=== PATIENT | female | born 1970 | race Caucasian/White ===

== ENCOUNTER 2021-02-17 16:00 | Emergency (ER) | payer OTHER ==
[~2021-02-17] VITALS: Ht 170.2 cm; Wt 125.6 kg
[~2021-02-17 16:00] MED LIST: CELEXA40 MG PO; CITALOPRAM HBR20 MG PO; CYCLOBENZAPRINE10 MG PO; DESIPRAMINE HCL25 MG PO; LISINOPRIL10 MG PO; LORTAB 10 MG-3473 ML PO; NARATRIPTAN HC2.5 MG PO; ONDANSETRON HCL4 MG PO; PROAIR HFA8.5 GM INH; TOPIRAMATE50 MG PO; VALIUM5 MG PO; ZITHROMAX250 MG PO; ZOLPIDEM TARTRA10 MG PO
== END 2021-02-17 19:35 | disposition home or self-care (01) ==
LOC: ED 16:00
DX: G43.909 Migraine, unspecified, not intractable, without status migrainosus (principal); F17.200 Nicotine dependence, unspecified, uncomplicated; Z88.8 Allergy status to other drugs, medicaments and biological substances; Z88.1 Allergy status to other antibiotic agents; Z79.899 Other long term (current) drug therapy
CPT/HCPCS: 96372; 99283; J1100; J1885

== ENCOUNTER 2021-02-23 07:10 | Day surgery (SDC) | payer OTHER ==
[~2021-02-23] VITALS: Ht 170.2 cm; Wt 125.9 kg
[~2021-02-23 07:10] MED LIST changes: +ACETAMINOPHEN325 M1 PO; +IBUPROFEN200 M1 PO; +KETOROLAC TROME10 MG PO
--- NOTE | 2021-02-23 08:48 | NUR ---
PT ALERT, ORIENTED AND ENJOYING A BOOK SHE BROUGHT ALONG. PT HERE FOR HER FIRST SCOPE. TOLERATED PREP, GAVE BLESSING. WILL FOLLOW NEEDED
--- NOTE | 2021-02-23 09:10 | NUR ---
02/23/21 0910 Kimberlyn,Miguelina 0900 PT ARRIVED TO PACU ON 4L VIA NC, VSS. PT NONAROUSABLE. RESP EVEN AND UNLABORED.
--- NOTE | 2021-02-24 06:13 | OR ---
[facility] [address] [place], [place] [address] Signed DATE OF OPERATION: 02/23/2021 SURGEON: Joanie Dasilva MD PREOPERATIVE DIAGNOSIS: Screening. POSTOPERATIVE DIAGNOSES: 1. 4 mm polyp at 7 cm. 2. 4 mm polyp at 12 cm. 3. Minimal internal hemorrhoids. PROCEDURE: Colonoscopy with hot biopsy. ESTIMATED BLOOD LOSS: None. INDICATIONS: Anitha is a 50-year-old female with a body mass index of 45. She was asked to see me for her initial screening colonoscopy. There are no lower GI complaints. There is no family history of colon cancer or polyps. In the office, I gave her a pamphlet on colonoscopy. She understands the nature of that test. There is risk including, but not limited to gas bloating, crampy abdominal pain, bleeding, perforation requiring surgery, and missed diagnosis. Also because of her very large face, heavy neck, and abdomen along with her multiple medical issues including a previous alcohol dependence, we asked that she have an anesthesia provider for increased monitoring sedation with propofol. She had expressed understanding and wished to proceed. PROCEDURE NOTE: Anitha was taken into our endoscopy suite and placed in the left lateral decubitus position. She was given IV sedation per our nurse fit model. A digital rectal exam was performed and this was unremarkable. The adult colonoscope was introduced and advanced all around into the cecum under direct visualization of the camera. She still had some areas of soft stool matter. I think in the future she would be much better served with a double bowel prep. The cecum itself was covered in thick pasty semi-liquid stool that we could not suction through the scope. However, we could see the ileocecal valve quite well. The scope was then slowly withdrawn. I would say well over 90% of the mucosa was visualized. We found no diverticuli. We found 2 small polyps in the rectum, easily removed with hot biopsy forceps. Upon retroflexion of Electronically Signed By: JOANIE DASILVA MD 02/24/21 0613 PATIENT NAME: ANITHA SALDANA OPERATIVE REPORT DATE OF : 70 REPORT #: [id number] PHYSICIAN: JOANIE DASILVA MD PCP: MAURICE RODRIGUEZ REPORT IS CONFIDENTIAL AND NOT TO BE RELEASED WITHOUT AUTHORIZATION [facility] [address] [place], [place] [address] Signed scope, she does have just small internal hemorrhoid columns. After this, the gas was suctioned out. The colonoscope removed. Anitha tolerated the procedure quite well. RECOMMENDATIONS: Anitha can return in the office in 7 to 14 days to review her results. She should consider double bowel prep in the future. She might consider a shorter interval for her followup endoscopy based on the bowel prep today. Joanie Dasilva MD ALB/MODL /[id number] cc: Chart Filed Incomplete Maurice Dasilva MD Copies: CHART FILED INCOMPLETE JOANIE DASILVA MD ~ Electronically Signed By: JOANIE DASILVA MD 02/24/21 0613 PATIENT NAME: ANITHA SALDANA OPERATIVE REPORT DATE OF : 70 REPORT #: [id number] PHYSICIAN: JOANIE DASILVA MD PCP: MAURICE RODRIGUEZ REPORT IS CONFIDENTIAL AND NOT TO BE RELEASED WITHOUT AUTHORIZATION
--- NOTE | 2021-02-24 16:57 | PATH ---
[facility] [address] [place], [place] [address] Signed SPECIMEN(S): A COLON POLYP AT 7 CM SPECIMEN(S): B COLON POLYP AT 12 CM SPECIMEN SOURCE: A. COLON POLYP AT 7 CM B. COLON POLYP AT 12 CM CLINICAL HISTORY: Screening colonoscopy. Postop: Internal hemorrhoids, rectal polyps. MICROSCOPIC DESCRIPTION: Histologic sections of all submitted blocks are examined by light microscopy. These findings, together with the gross examination, support the pathologic diagnosis. FINAL PATHOLOGIC DIAGNOSIS: A. Colon polyp at 7 cm: - Hyperplastic polyp (one fragment). B. Colon polyp at 12 cm: - Hyperplastic polyp with focal epithelial erosion and mild chronic inflammation (two fragments). JVR:smh:C2NR GROSS DESCRIPTION: Two specimens are received in two containers, labeled "MC." A. The specimen, labeled "MC, colon polyp at 7 cm," is received in formalin and consists of one maloney soft tissue fragment that measures 0.2 cm in greatest dimension. The specimen is entirely submitted in cassette (A1). B. The specimen, labeled "MC, colon polyp at 12 cm," is received in formalin and consists of two maloney soft tissue fragments that measure 0.2 cm in greatest dimension. The specimen is entirely submitted in cassette (B1). JS (under the direct supervision of a pathologist) The Gross Description was prepared using a voice recognition system. The report was reviewed for accuracy; however, sound-alike word errors, addition and/or deletions may occur. If there is any question about this report, please contact Client Services. PERFORMING LABORATORY: The technical component was performed by [facility], [address] [place] [id number] (Precast Worker: Ying Mota MD; CLIA# [id number]). PATIENT NAME: KURT SALDANA PATHOLOGY DATE OF : 70 REPORT #: [id number] PHYSICIAN: DIANA PATHOLOGY PCP: MAURICE RODRIGUEZ REPORT IS CONFIDENTIAL AND NOT TO BE RELEASED WITHOUT AUTHORIZATION [facility] [address] [place], [place] [address] Signed Professional interpretation was performed by [facility], [address] [address]. Diagnostician: Blair Trejo MD Pathologist Electronically Signed 02/24/2021 Copies: ~ PATIENT NAME: KURT SALDANA PATHOLOGY DATE OF : 70 REPORT #: [id number] PHYSICIAN: DIANA PATHOLOGY PCP: MAURICE RODRIGUEZ REPORT IS CONFIDENTIAL AND NOT TO BE RELEASED WITHOUT AUTHORIZATION
== END 2021-02-23 09:50 | disposition home or self-care (01) ==
LOC: OPS 07:10 → DS 07:10 → OPS 08:00 → DS 08:00 → OPS 09:50
PROVIDERS: ATTEND Colon & Rectal Surgery
PROC: 0DBP8ZX Excision of Rectum, Via Natural or Artificial Opening Endoscopic, Diagnostic (ICD-10-PCS; principal; 2021-02-23 08:00)
DX: Z12.11 Encounter for screening for malignant neoplasm of colon (principal); K63.5 Polyp of colon; F17.210 Nicotine dependence, cigarettes, uncomplicated; F32.9 Major depressive disorder, single episode, unspecified; E03.9 Hypothyroidism, unspecified
CPT/HCPCS: 84703; 88305; J2001; J2704

== ENCOUNTER 2021-05-29 20:37 | Emergency (ER) | payer OTHER ==
[~2021-05-29] VITALS: Ht 170.2 cm; Wt 125.6 kg
--- OUTSIDE RECORDS SUMMARY | 2021-05-29 20:40 | XMS ---
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 There are no care providers on record at this time. Iram has no Care Guidelines for this patient. Vinod VISIT COUNT (12 MO.) 2 JONATHON La TOTAL 2 NOTE: Visits indicate total known visits. ED/C VISIT TRACKING (12 MO.) 05/29/2021 20:38 [facility] TYPE: Emergency COMPLAINT: - HEADACHE 02/17/2021 16:01 [facility] TYPE: Emergency COMPLAINT: - HEADACHE DIAGNOSES: - Other half-way (current) drug therapy - Migraine, unspecified, not intractable, without status migrainosus - Allergy status to other drugs, medicaments and biological substances - Headache, unspecified - Allergy status to other antibiotic agents - Nicotine dependence, unspecified, uncomplicated INPATIENT VISIT TRACKING (12 MO.) No inpatient visits to display in this time frame [id number]
== END 2021-05-29 22:17 | disposition home or self-care (01) ==
LOC: ED 20:37
DX: R51.9 Headache, unspecified (principal); F17.200 Nicotine dependence, unspecified, uncomplicated; Z88.8 Allergy status to other drugs, medicaments and biological substances; Z79.899 Other long term (current) drug therapy; G43.909 Migraine, unspecified, not intractable, without status migrainosus
CPT/HCPCS: 70450; 96374; 96375; 99284-25; J1200; J1885; J2765; J7030

== ENCOUNTER 2021-07-10 17:09 | Emergency (ER) | payer OTHER ==
[~2021-07-10] VITALS: Ht 170.2 cm; Wt 127.0 kg
--- OUTSIDE RECORDS SUMMARY | 2021-07-10 17:12 | XMS ---
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 Vinod VISIT COUNT (12 MO.) 3 JONATHON La TOTAL 3 NOTE: Visits indicate total known visits. 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
== END 2021-07-10 20:10 | disposition home or self-care (01) ==
LOC: ED 17:09
DX: G43.909 Migraine, unspecified, not intractable, without status migrainosus (principal); F17.200 Nicotine dependence, unspecified, uncomplicated; Z88.1 Allergy status to other antibiotic agents; Z88.8 Allergy status to other drugs, medicaments and biological substances
CPT/HCPCS: 96374; 96375; 99283-25; J1200; J1885; J2765; J7030

== ENCOUNTER 2021-08-19 05:40 | Day surgery (SDC) | payer OTHER ==
[~2021-08-19] VITALS: Ht 170.2 cm; Wt 127.3 kg
[2021-08-19] MEDS ORDERED: CELECOXIB200 MG PO (07:45)
[2021-08-19] MEDS ORDERED: HYDROCODON-ACE1 EA10 PO (07:45)
--- NOTE | 2021-08-19 07:50 | NUR ---
08/19/21 6138 [address] Turner 4063 PATIENT ARRIVES TO PACU UNRESPONSIVE TO PAIN. ORAL AIRWAY IN PLACE. RESP EVEN AND UNLABORED, MASK AT 6 LITERS. LEFT LEG PLACED ON PILLOW FOR ELEVATION. ICE PACK TO LEFT KNEE.
--- NOTE | 2021-08-19 09:36 | NUR ---
PATIENT APPEARS TO BE SNORING. DRESSING C/D/I ICE PACK IN [place]. STRONG PEDAL PULSE. VSS. PATIENT AWAKES, STATES JUST GET ME HOME. DISCUSSED POC, AND MEETING CRITERIA.
--- NOTE | 2021-08-19 12:07 | NUR ---
1115 AMB TO BR SLOWLY. DID WELL. STATES OH ITS NOT BAD I THOUGHT IT WOULD BE. VOIDS QS. WANTS TO GO HOME. STATES PAIN MED WORKING. 01/22 PAIN. MOM HELPING TO DRESS.
--- NOTE | 2021-08-22 07:01 | OR ---
[facility] [address] [place], [place] [address] Signed DATE OF OPERATION: 08/19/2021 SURGEON: Fabi Baron MD PREOPERATIVE DIAGNOSIS: Medial meniscus tear, left knee. POSTOPERATIVE DIAGNOSIS: Medial meniscus tear, left knee. PROCEDURE PERFORMED: Left knee arthroscopy with partial medial meniscectomy. AUTOMATIC COIN MACHINE MECHANIC: None. ANESTHESIA: General. BLOOD LOSS: 75 mL. BRIEF HISTORY: Anitha is a 51-year-old female with progressive pain and instability in her knee. MRI is consistent with the above findings. Risks and benefits of operative treatment were discussed with her and she elected to proceed. DESCRIPTION OF PROCEDURE: Once consent was obtained, she was taken to the operating room. After adequate anesthesia, she was placed on operating room table. All downside pressure points were well padded. The right leg was flexed, abducted, and externally rotated on a well-padded leg khan. The left was placed in well-padded leg khan without a tourniquet. The leg was then prepped and draped in a standard sterile fashion after injecting the portal sites with 0.25% Marcaine with epinephrine under an alcohol prep. The standard inferolateral and superolateral portals were made and the scope was introduced into the knee. ARTHROSCOPIC FINDINGS: Moderate synovitis was noted throughout the knee, most acute in the medial compartment. The patella was noted to track well. 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 The medial and lateral gutters were cleared with small osteophytes. The ACL was intact as was the PCL. The lateral compartment was intact with no significant chondromalacia or meniscus tear. The medial compartment showed a complex tear, degenerative nature standing from mid-medial body posteriorly to the mid posterior horn. There were unstable flaps on the undersurface. 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 Standard inferomedial portal was made after localization using a spinal needle. The straight and curved biters were used to trim the meniscus tear back to a stable rim. This was smoothed then feathered out using the shaver. The chondral flaps removed as well. All debris was evacuated. The scope was withdrawn. Portals were closed with 3-0 nylon and the knee was injected with 60 mg of Toradol at the end of the case. The wounds were dressed with Adaptic, ABD and Willian wrap. She was awakened, taken to the recovery room in satisfactory condition. All sponge, needle, and instrument counts were correct. Fabi Baron MD BA/ZOFIAL /[id number] Copies: ~ Electronically Signed By: FABI BARON MD 08/22/21 0701 PATIENT NAME: ANITHA SALDANA OPERATIVE REPORT DATE OF : 70 REPORT #: [id number] PHYSICIAN: FABI BARON MD PCP: MAURICE RODRIGUEZ REPORT IS CONFIDENTIAL AND NOT TO BE RELEASED WITHOUT AUTHORIZATION
== END 2021-08-19 10:17 | disposition home or self-care (01) ==
LOC: DS 05:40
PROVIDERS: ATTEND Specialist
PROC: 0SBD4ZZ Excision of Left Knee Joint, Percutaneous Endoscopic Approach (ICD-10-PCS; principal; 2021-08-19 06:45)
DX: S83.242A Other tear of medial meniscus, current injury, left knee, initial encounter (principal); M65.9 Synovitis and tenosynovitis, unspecified; M94.262 Chondromalacia, left knee; F17.210 Nicotine dependence, cigarettes, uncomplicated; X58.XXXA Exposure to other specified factors, initial encounter
CPT/HCPCS: 01400; J0690; J1100; J1885; J2001; J2250; J2405; J2704; J7121

== ENCOUNTER 2022-08-23 07:59 | Emergency (ER) | payer OTHER ==
[~2022-08-23] VITALS: Ht 170.2 cm; Wt 128.7 kg
[~2022-08-23 07:59] MED LIST changes: +CELECOXIB200 MG PO; +HYDROCODON-ACE1 EA10 PO
--- OUTSIDE RECORDS SUMMARY | 2022-08-23 08:02 | XMS ---
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 Vinod VISIT COUNT (12 MO.) 1 JONATHON La TOTAL 1 NOTE: Visits indicate total known visits. ED/UCC VISIT TRACKING (12 MO.) 08/23/2022 07:59 [facility] TYPE: Emergency COMPLAINT: - R INDEX FINGER LACERATION INPATIENT VISIT TRACKING (12 MO.) No inpatient visits to display in this time frame [id number]
[2022-08-23] MEDS ORDERED: CITALOPRAM HBR20 MG PO (08:12)
[2022-08-23] MEDS ORDERED: DESIPRAMINE HCL50 MG PO (08:12)
== END 2022-08-23 09:42 | disposition home or self-care (01) ==
LOC: ED 07:59
DX: S61.211A Laceration without foreign body of left index finger without damage to nail, initial encounter (principal); F17.200 Nicotine dependence, unspecified, uncomplicated; W26.0XXA Contact with knife, initial encounter
CPT/HCPCS: 12001; 99282-25

== ENCOUNTER 2022-11-09 13:45 | Emergency (ER) | payer OTHER ==
[~2022-11-09] VITALS: Ht 170.2 cm; Wt 127.1 kg
[~2022-11-09 13:45] MED LIST changes: +DESIPRAMINE HCL50 MG PO
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
[2022-11-09] MEDS ORDERED: NURTEC ODT75 MG PO (14:09)
[2022-11-09] MEDS ORDERED: OXYBUTYNIN CHLO10 MG PO (14:09)
[2022-11-09] MEDS ORDERED: METFORMIN HCL500 M1 PO (14:09)
[2022-11-09] MEDS ORDERED: LOMOTIL TABLET1 EACH PO (16:14)
[2022-11-09] MEDS ORDERED: ONDANSETRON ODT8 MG PO (16:14)
== END 2022-11-09 17:50 | disposition home or self-care (01) ==
LOC: ED 13:45
DX: K52.9 Noninfective gastroenteritis and colitis, unspecified (principal); G43.909 Migraine, unspecified, not intractable, without status migrainosus; F17.200 Nicotine dependence, unspecified, uncomplicated; Z88.8 Allergy status to other drugs, medicaments and biological substances; Z79.899 Other long term (current) drug therapy
CPT/HCPCS: 36415; 80053; 83690; 85025; 96361; 96374; 99284-25; J2405; J7030

== ENCOUNTER 2022-12-04 21:02 | Emergency (ER) | payer OTHER ==
[~2022-12-04] VITALS: Ht 170.2 cm; Wt 127.0 kg
[~2022-12-04 21:02] MED LIST changes: +LOMOTIL TABLET1 EACH PO; +METFORMIN HCL500 M1 PO; +NURTEC ODT75 MG PO; +ONDANSETRON ODT8 MG PO; +OXYBUTYNIN CHLO10 MG PO
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
--- NOTE | 2022-12-05 21:46 | EKG ---
[facility] [address] [facility] [place] [address] Signed Normal sinus rhythm Low voltage QRS Incomplete right bundle branch block Borderline ECG When compared with ECG of 17-FEB-2021 15:49, QT has lengthened Confirmed by Jame Bailey MD () on 12/05/2022 9:46:00 PM Electronically Signed By: JAME BAILEY MD 12/05/22 2146 PATIENT NAME: KURT SALDANA Electrocardiogram DATE OF : 70 PHYSICIAN: JAME BAILEY MD REPORT #: [id number] REPORT IS CONFIDENTIAL AND NOT TO BE RELEASED WITHOUT AUTHORIZATION
== END 2022-12-05 01:10 | disposition home or self-care (01) ==
LOC: ED 21:02
DX: R55 Syncope and collapse (principal); F10.129 Alcohol abuse with intoxication, unspecified; G43.909 Migraine, unspecified, not intractable, without status migrainosus; F17.200 Nicotine dependence, unspecified, uncomplicated; Z88.8 Allergy status to other drugs, medicaments and biological substances; Z79.899 Other long term (current) drug therapy; Z79.84 Long term (current) use of oral hypoglycemic drugs
CPT/HCPCS: 36415; 70450; 71045; 80053; 81003; 84484; 85025; 93005; 93010; 96374; 99285-25; A9270; G0480; J1790; J7121